=== PATIENT | male | born 1935 | race Caucasian/White ===

== ENCOUNTER 2021-06-08 14:50 | Inpatient (IN) ==
[2021-06-08] MEDS ORDERED: 0.9 % SODIUM CHLORIDE 1,000 ML IV ONE (16:43)
[2021-06-08] MEDS ORDERED: LACTATED RINGERS 1,000 ML IV ONE (16:56)
--- NOTE | 2021-06-08 17:03 | Emergency Department Note ---
HPI General Chief complaint: Urogenital-Male Stated complaint: alt. mental status/UTI Time Seen by Provider: 06/08/21 16:31 Source: patient Mode of arrival: wheelchair Limitations: no limitations History of Present Illness HPI Narrative: Patient is an 86-year-old gentleman arrives emergency department by private vehicle accompanied by his daughter and son-in-law complaining of confusion. History is provided by the patient with significant collateral information provided by his family. The patient was diagnosed with a UTI about 3 weeks ago. He had been having confusion and his primary care doctor prescribed antibiotics to treat this. He initially had some improvement in his confusion but over the past several days has been having worsening confusion. He has been perseverating on unusual tasks, shaving his genitals and armpits and telling his family about this. His family is also noted significant confusion that waxes and wanes throughout the day. He notes that he has been having some dysuria abdominal pain and chest pain. He has been having hematuria with passage of blood clots as well. Nothing seems to make his symptoms any better. Today his confusion was getting worse so his family brought him in for further evaluation. He has received both doses of a COVID-19 vaccine. Related Data Home Medications Medication Instructions Recorded Confirmed amoxicillin-pot clavulanate 5 ml BID 02/06/21 02/06/21 apixaban [Eliquis] 2.5 mg PO BID 02/06/21 02/06/21 rivaroxaban [Xarelto] 15 mg PO HS 02/06/21 02/06/21 Allergies Allergy/AdvReac Type Severity Reaction Status Date / Time No Known Drug Allergies Allergy Verified 06/08/21 14:55 Review of Systems ROS ROS Narrative: Narrative: All systems ED: reviewed and negative except as stated. Constitutional: Denies fever and chills Respiratory: Denies shortness of breath and cough PFSH Narrative Patient History Narrative: Narrative: Medical/Surgical/Family History All Active Problems (Updated 06/08/21 @ 17:05 by Ilya Heller DO) Delirium (Acute) Transient confusion (Acute) Alcohol intoxication (Acute) ISABELLE (acute kidney injury) (Acute) Medical History (Updated 06/08/21 @ 17:05 by Ilya Heller DO) Atrial fibrillation CAD (coronary artery disease) Chronic kidney disease Liver disease Pacemaker Surgical History (Updated 06/08/21 @ 17:03 by Ilya Heller DO) Hx of CABG Social History Smoking Status: Former smoker Alcohol Intake Frequency: 0-2 drinks per day Substance Use: does not use Exam Narrative Narrative: I reviewed the vital signs. Gen -patient is awake and alert and in no acute distress. The patient is well groomed. HEENT -head is atraumatic. There is no conjunctival pallor or scleral icterus. Mucous membranes are moist. There are multiple telangiectasias on the patient's face. CV -S1-S2 regular rate and rhythm. Resp -breathing is nonlabored. Lungs are clear to auscultation bilaterally. There is no cyanosis. Derm -skin is warm and dry. MSK -present extremities are atraumatic. Psych -patient has appropriate affect. Neuro -patient provides somewhat inconsistent but contextually appropriate answers to questions. He is oriented to person place and situation. He is dis oriented to the year and date saying it March 08, 1923. There is no dysarthria or aphasia. There is no facial muscular asymmetry. Extraocular motion is intact. Tongue protrudes in the midline. Palate elevates symmetrically. Shoulder shrug is symmetric. Muscle strength is 5 out of 5 in all 4 extremities. Peripheral sensation is grossly intact to light touch bilaterally. There is no [id number] abnormality. There is no [id number] abnormality. There is no asterixis. NIH stroke scale = 2. General Limitations: no limitations Course Vital Signs Vital signs: Vital Signs Temperature 96.7 F L 06/08/21 14:51 Pulse Rate 107 H 06/08/21 14:51 Respiratory Rate 18 06/08/21 14:51 Blood Pressure 150/84 06/08/21 14:51 Pulse Oximetry (%) 95 06/08/21 14:51 Temperature 96.7 F L 06/08/21 14:51 Pulse Rate 107 H 06/08/21 14:51 Respiratory Rate 18 06/08/21 14:51 Blood Pressure 150/84 06/08/21 14:51 Pulse Oximetry (%) 95 06/08/21 14:51 [facility] MDM Narrative Medical decision making narrative: Patient presents with waxing waning confusion consistent with delirium. As he is on an anticoagulant will obtain a CT scan to evaluate for subdural hematoma. I personally performed a limited bedside transabdominal pelvic ultrasound. The bladder is distended with some echogenic material visible consistent with possible clots. We will insert a Barclay catheter and initiate bladder irrigation of the patient does have significant hematuria. I discussed the plan for metabolic evaluation and imaging with the patient and his family and they are agreeable. Dr. Alonso assumed care at the change of shift and will follow up on the test results and ensure appropriate disposition. Lab Data Result diagrams: 06/08/21 16:44 06/08/21 16:44 Discharge Plan Patient/Caregiver Discharge Instructions Pt seen by MACHINE FINISHER/PA only: No Clinical Impression: Delirium Patient Disposition: Still a Patient Follow up with: Tom Lyle DO [Primary Care Provider] - Prescriptions: No Action amoxicillin-pot clavulanate 400-57 mg/5 mL suspension for reconstitution 5 ml BID RF: 0 Xarelto 15 mg tablet 15 mg PO HS RF: 0 Eliquis 2.5 mg tablet 2.5 mg PO BID RF: 0
[2021-06-08 17:25] LABS: POC INR 1.4 (0.8-1.2); POC Pro Time 16.8 sec (11.9-14.5)
--- NOTE | 2021-06-08 17:51 | Cat Scan Report ---
History: Recent falls, increasing confusion, evaluate for subdural hematoma. FINDINGS: The brain was imaged without contrast in axial plane at 2.5 mm intervals. Sagittal and coronal reformats were created. The radiation exposure was limited using dose reduction technology. FINDINGS: There is moderate generalized atrophy both above and below the tentorium. No subdural or other abnormal extra-axial fluid collection are present. The ventricles are normal in size. 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 No other infarct is detected. There is no hemorrhage, edema or mass effect. Bone windows show no skull fracture. Comparison with the prior CT done on 02/06/21 shows no change. IMPRESSION: No acute head injury or intracranial hemorrhage. Stable atrophy and stable small left basal ganglia lacunar infarct Dr. Alonso was called with the report Interpreted and Authenticated by: Charan Levin 06/08/21
[2021-06-08 17:52] LABS: Basophils # (Auto) 0.03 K/mcL (0.00-0.30); Basophils % (Auto) 0.6 % (0.0-2.0); Eosinophils # (Auto) 0.11 K/mcL (0.00-0.70); Eosinophils % (Auto) 2.3 % (0.0-7.0); Hematocrit 33.9 % (40.1-51.0); Hemoglobin 9.6 g/dL (13.7-17.5); Lymphocytes # (Auto) 0.44 K/mcL (1.50-4.80); Lymphocytes % (Auto) 9.1 % (15.5-49.0); Mean Corpuscular HGB Conc 28.3 g/dL (31.0-36.0); Mean Platelet Volume 10.5 fL (7.4-10.4); Monocytes # (Auto) 0.75 K/mcL (0.10-0.90); Monocytes % (Auto) 15.4 % (1.0-12.0); Neutrophils % (Auto) 72.6 % (38.0-78.0); Platelet Count 145 K/mcL (140-440); RBC 3.39 M/mcL (4.63-6.08); Red Cell Distribution Width 17.2 % (11.5-14.5); WBC 4.9 K/mcL (4.5-11.0)
[2021-06-08] MEDS ORDERED: AZITHROMYCIN 500 MG in DEXTROSE 5% IN WATER 250 ML IV ONE (17:52)
[2021-06-08] MEDS ORDERED: cefTRIAXone 2 GM in DEXTROSE 5% IN WATER 50 ML IV ONE (17:52)
--- NOTE | 2021-06-08 17:55 | XRay Report ---
HISTORY: Pneumonia, altered mental status FINDINGS: There are widespread alveolar opacities in both lungs affecting the left side greater than right. This could be a combination of pulmonary edema and severe pneumonia. There are superimposed pleural effusions, small to moderate on the left and small on the right. The heart is moderately enlarged. There is a pacemaker. Comparison with the prior chest CT done on 02/15/21 shows the patient has underlying emphysema. Bilateral pleural effusions were present at the time of the prior exam. The infiltrates have become worse and the heart is larger. IMPRESSION: Pneumonia or pulmonary edema superimposed underlying emphysema Interpreted and Authenticated by: Charan Levin 06/08/21
[2021-06-08 18:14] LABS: ALT/SGPT 17 U/L (<40); AST/SGOT 29 U/L (<40); Albumin 3.7 gm/dL (3.2-5.2); Albumin/Globulin Ratio 1.2 (1.0-2.3); Alkaline Phosphatase 130 U/L (39-117); Bilirubin,Total 0.7 mg/dL (0.1-1.0); Blood Urea Nitrogen 30 mg/dL (8-23); Carbon Dioxide 23 mmol/L (22-30); Chloride 104 mmol/L (96-108); Globulin 3.2 gm/dL (2.2-3.7); Glomerular Filtration Rate 49; Glucose 78 mg/dL (70-105)
[2021-06-08 18:23] LABS: Alcohol, Blood < 10.0 mg/dL; Alcohol,Blood < 0.010 gm/dL (<0.010)
[2021-06-08] MEDS ORDERED: cefTRIAXone 2 GM VIAL ONE (18:39)
[2021-06-08 19:07] LABS: Appearance,Urine HAZY (Clear); Bilirubin,Urine Negative (Negative); Color,Urine YELLOW; Culture Indicated,Urine yes; Glucose,Urine (UA) Negative (Negative); Ketones,Urine Negative (Negative); Leukocyte Esterase,Urine 25 /uL (Negative); Mucus,Urine FEW /hpf; Nitrate,Urine Negative (Negative); Protein,Urine 100 mg/dL (Negative); Specific Gravity,Urine 1.019 (1.000-1.035); Urine Blood >=1.0 mg/dL (Negative); Urine Hyaline Cast 3 /lph (0-2); Urine RBC 8 /hpf (0-3); Urine Squamous Epithelial Cell 0 /hpf (0-4); Urine WBC 12 /hpf (0-4); Urobilinogen,Urine Negative
--- NOTE | 2021-06-08 19:31 | Emergency Department Note ---
HPI General Chief complaint: Urogenital-Male Stated complaint: alt. mental status/UTI Time Seen by Provider: 06/08/21 16:31 Source: patient Mode of arrival: wheelchair Limitations: no limitations History of Present Illness HPI Narrative: Narrative: This patient was signed out to me by Dr Heller, for full details please see his H&P. In brief, he presents today for ALOC, w/ some hematuria in setting of recent UTI Tx and w/ a PMH of CAD, AF, and previous issues w/ ETOH. He was signed out to me with imaging and labs pending. I evaluated the pt personally and he reported no complaints. Related Data Home Medications Medication Instructions Recorded Confirmed apixaban [Eliquis] 2.5 mg PO BID 02/06/21 06/09/21 albuterol sulfate [ProAir HFA] 1 - 2 puff INHALATION Q4HP PRN 06/09/21 06/09/21 Allergies Allergy/AdvReac Type Severity Reaction Status Date / Time No Known Drug Allergies Allergy Verified 06/08/21 14:55 Review of Systems ROS ROS Narrative: Narrative: PFSH Narrative Patient History Narrative: Narrative: Medical/Surgical/Family History All Active Problems (Updated 06/08/21 @ 20:16 by Randy Alonso MD) Delirium (Acute) Pneumonia (Acute) Transient confusion (Acute) Alcohol intoxication (Acute) ISABELLE (acute kidney injury) (Acute) Medical History (Updated 06/08/21 @ 20:16 by Randy Alonso MD) Atrial fibrillation CAD (coronary artery disease) Chronic kidney disease Liver disease Pacemaker Surgical History (Updated 06/08/21 @ 17:03 by Ilya Heller DO) Hx of CABG Social History Smoking Status: Former smoker Alcohol Intake Frequency: 0-2 drinks per day Substance Use: does not use Exam Narrative Narrative: Narrative: General Limitations: no limitations General appearance: Present alert and in no apparent distress Head Head: Present atraumatic and normocephalic Respiratory Respiratory: Present normal lung sounds bilaterally; Absent respiratory distress, rales/crackles, wheezes and stridor Cardiovascular Cardiovascular: Present regular rate, normal rhythm, +S1, +S2 and other (2+ B/L radial pulses); Absent systolic murmur and diastolic murmur Neurological Neurological: Present alert and other (confused. Intact sensation and strength over all 4 extremities) Course Vital Signs Vital signs: Vital Signs Temperature 96.7 F L 06/08/21 14:51 Pulse Rate 107 H 06/08/21 14:51 Respiratory Rate 18 06/08/21 14:51 Blood Pressure 150/84 06/08/21 14:51 Pulse Oximetry (%) 95 06/08/21 14:51 Temperature 97.3 F 06/09/21 14:40 Pulse Rate 62 06/09/21 14:40 Respiratory Rate 18 06/09/21 14:40 Blood Pressure 111/63 06/09/21 14:40 Pulse Oximetry (%) 91 06/09/21 14:40 MDM MDM Narrative Medical decision making narrative: Narrative: 86 yo M w/ h/o CAD, AF, previous ETOH use p/w ALOC. DDx - sepsis, intracranial bleed, CVA, metabolic/electrolyte d/o, toxin ingestion, endocrine d/o Pt was initially evaluated by Dr Heller who started a thorough W/U and empiric fluids. Given the concern of hematuria, he requested a three way cather placement to evaluate this further and to allow for possible bladder irrigation if needed. The pts CT head showed no intracranial bleed, and his neuro exam documented by Dr Heller was nonfocal. I did not feel that CVA or ICH was likely. CMP showed no serious abnormalities - ammonia was WNL, Cr was at blaseline. Clinically a toxin ingestion seemed unlikely. His presentation was not c/w hyperthyroidism or other endocrine d/o. He did not meet SIRS criteria. His UA did not show convincing evidence of UTI w/ no bacteria present although his PNA coverage would also cover for UTI. Overall his evaluation was c/w ALOC likely 2/2 PNA. I started him on rocephin and azithromycin. Admission was clearly required. However, the hospitalist stated that his service was full and he would be unable to take the pt. He did state that two pts would likely go home early afternoon and he might be able to take pt at that point. I have discussed the option of overnight Tx in the ED w/ plan for likely admission tomorrow afternoon, vs T/F for hospitalization. At this point, pt does not require specialist care and the risks of flying far afield seem to outweigh the benefits, given that all that is required for his Tx is IVF and IV abx. I have reviewed w/ the family, and the gas charger, and we are in agreement w/ keeping the pt in the ED for further Tx and likely admission tomorrow. Although potentially if his mental status and BUN improve, he would have a CURB65 score of 1 and would potentially be able to be DCd home. Family was also comfortable w/ this. I monitored the pt overnight. He remained stable, no other overnight interventions were required, and he was signed out to Dr Heller. Lab Data Lab results reviewed: Yes I reviewed the patient's lab results. Result diagrams: 06/08/21 16:44 06/08/21 16:44 Labs: Lab Results 06/08/21 06/08/21 06/08/21 Range/Units 16:44 16:44 16:44 WBC 4.9 (4.5-11.0) K/mcL RBC 3.39 L (4.63-6.08) M/mcL Hgb 9.6 L (13.7-17.5) g/dL Hct 33.9 L (40.1-51.0) % POC Hct (41-55) % MCV 100.0 (80.0-100.0) fL MCH 28.3 (26.0-34.0) pg MCHC 28.3 L (31.0-36.0) g/dL RDW 17.2 H (11.5-14.5) % Plt Count 145 (140-440) K/mcL MPV 10.5 H (7.4-10.4) fL Neut % (Auto) 72.6 (38.0-78.0) % Lymph % (Auto) 9.1 L (15.5-49.0) % [place] % (Auto) 15.4 H (1.0-12.0) % Eos % (Auto) 2.3 (0.0-7.0) % Baso % (Auto) 0.6 (0.0-2.0) % Lymph # (Auto) 0.44 L (1.50-4.80) K/mcL [place] # (Auto) 0.75 (0.10-0.90) K/mcL Eos # (Auto) 0.11 (0.00-0.70) K/mcL Baso # (Auto) 0.03 (0.00-0.30) K/mcL Absolute Neutrophils 3.53 (1.80-8.00) K/mcL POC PT (11.9-14.5) sec POC INR (0.8-1.2) POC Sodium (133-145) mEq/L Sodium 140 (133-145) mmol/L POC Potassium (3.3-5.1) mEql/L Potassium 4.3 (3.3-5.1) mmol/L POC Chloride (96-108) mEq/L Chloride 104 (96-108) mmol/L Carbon Dioxide 23 (22-30) mmol/L POC Total CO2 (22-30) mmol/L Anion Gap 13.0 (8.0-16.0) POC BUN (6-20) mg/dL BUN 30 H (8-23) mg/dL Creatinine 1.3 H (0.7-1.2) mg/dL POC Creatinine (0.6-1.2) mg/dL GFR Calculation 49 Glucose 78 (70-105) mg/dL POC Glucose (70-105) mg/dL Calcium 9.0 (8.6-10.4) mg/dL POC WB Ioniz Calcium (1.16-1.32) mmEq/L Total Bilirubin 0.7 (0.1-1.0) mg/dL AST 29 (<40) U/L ALT 17 (<40) U/L Alkaline Phosphatase 130 H (39-117) U/L Ammonia 18 (16-60) umol/L NT-Pro-B Natriuret Pep (<450.0) pg/mL Total Protein 6.9 (5.9-8.4) gm/dL Albumin 3.7 (3.2-5.2) gm/dL Globulin 3.2 (2.2-3.7) gm/dL Albumin/Globulin Ratio 1.2 (1.0-2.3) Procalcitonin (<0.10) ng/mL Urine Color Urine Appearance (Clear) Urine pH (5.0-9.0) Ur Specific [place] (1.000-1.035) Urine Protein (Negative) mg/dL Urine Glucose (UA) (Negative) mg/dL Urine Ketones (Negative) mg/dL Urine Occult Blood (Negative) mg/dL Urine Nitrate (Negative) Urine Bilirubin (Negative) mg/dL Urine Urobilinogen mg/dL Ur Leukocyte Esterase (Negative) /uL Urine RBC (0-3) /hpf Urine WBC (0-4) /hpf Ur Squamous Epith Cells (0-4) /hpf Urine Bacteria (0) /hpf Hyaline Casts (0-2) /lph Urine Mucus (None) /hpf Ur Culture Indicated? Ethyl Alcohol (<0.010) gm/dL 06/08/21 06/08/21 06/08/21 Range/Units 16:44 17:06 18:26 WBC (4.5-11.0) K/mcL RBC (4.63-6.08) M/mcL Hgb (13.7-17.5) g/dL Hct (40.1-51.0) % POC Hct (41-55) % MCV (80.0-100.0) fL MCH (26.0-34.0) pg MCHC (31.0-36.0) g/dL RDW (11.5-14.5) % Plt Count (140-440) K/mcL MPV (7.4-10.4) fL Neut % (Auto) (38.0-78.0) % Lymph % (Auto) (15.5-49.0) % [place] % (Auto) (1.0-12.0) % Eos % (Auto) (0.0-7.0) % Baso % (Auto) (0.0-2.0) % Lymph # (Auto) (1.50-4.80) K/mcL [place] # (Auto) (0.10-0.90) K/mcL Eos # (Auto) (0.00-0.70) K/mcL Baso # (Auto) (0.00-0.30) K/mcL Absolute Neutrophils (1.80-8.00) K/mcL POC PT 16.8 H (11.9-14.5) sec POC INR 1.4 H (0.8-1.2) POC Sodium (133-145) mEq/L Sodium (133-145) mmol/L POC Potassium (3.3-5.1) mEql/L Potassium (3.3-5.1) mmol/L POC Chloride (96-108) mEq/L Chloride (96-108) mmol/L Carbon Dioxide (22-30) mmol/L POC Total CO2 (22-30) mmol/L Anion Gap (8.0-16.0) POC BUN (6-20) mg/dL BUN (8-23) mg/dL Creatinine (0.7-1.2) mg/dL POC Creatinine (0.6-1.2) mg/dL GFR Calculation Glucose (70-105) mg/dL POC Glucose (70-105) mg/dL Calcium (8.6-10.4) mg/dL POC WB Ioniz Calcium (1.16-1.32) mmEq/L Total Bilirubin (0.1-1.0) mg/dL AST (<40) U/L ALT (<40) U/L Alkaline Phosphatase (39-117) U/L Ammonia (16-60) umol/L NT-Pro-B Natriuret Pep (<450.0) pg/mL Total Protein (5.9-8.4) gm/dL Albumin (3.2-5.2) gm/dL Globulin (2.2-3.7) gm/dL Albumin/Globulin Ratio (1.0-2.3) Procalcitonin (<0.10) ng/mL Urine Color Yellow Urine Appearance Hazy A (Clear) Urine pH 5.0 (5.0-9.0) Ur Specific [place] 1.019 (1.000-1.035) Urine Protein 100 A (Negative) mg/dL Urine Glucose (UA) Negative (Negative) mg/dL Urine Ketones Negative (Negative) mg/dL Urine Occult Blood >=1.0 A (Negative) mg/dL Urine Nitrate Negative (Negative) Urine Bilirubin Negative (Negative) mg/dL Urine Urobilinogen Negative mg/dL Ur Leukocyte Esterase 25 A (Negative) /uL Urine RBC 8 H (0-3) /hpf Urine WBC 12 H (0-4) /hpf Ur Squamous Epith Cells 0 (0-4) /hpf Urine Bacteria None (0) /hpf Hyaline Casts 3 H (0-2) /lph Urine Mucus Few A (None) /hpf Ur Culture Indicated? yes Ethyl Alcohol < 0.010 (<0.010) gm/dL 06/09/21 06/09/21 06/09/21 Range/Units 08:39 08:39 08:39 WBC (4.5-11.0) K/mcL RBC (4.63-6.08) M/mcL Hgb (13.7-17.5) g/dL Hct (40.1-51.0) % POC Hct 31 L (41-55) % MCV (80.0-100.0) fL MCH (26.0-34.0) pg MCHC (31.0-36.0) g/dL RDW (11.5-14.5) % Plt Count (140-440) K/mcL MPV (7.4-10.4) fL Neut % (Auto) (38.0-78.0) % Lymph % (Auto) (15.5-49.0) % [place] % (Auto) (1.0-12.0) % Eos % (Auto) (0.0-7.0) % Baso % (Auto) (0.0-2.0) % Lymph # (Auto) (1.50-4.80) K/mcL [place] # (Auto) (0.10-0.90) K/mcL Eos # (Auto) (0.00-0.70) K/mcL Baso # (Auto) (0.00-0.30) K/mcL Absolute Neutrophils (1.80-8.00) K/mcL POC PT (11.9-14.5) sec POC INR (0.8-1.2) POC Sodium 140 (133-145) mEq/L Sodium (133-145) mmol/L POC Potassium 4.6 (3.3-5.1) mEql/L Potassium (3.3-5.1) mmol/L POC Chloride 102 (96-108) mEq/L Chloride (96-108) mmol/L Carbon Dioxide (22-30) mmol/L POC Total CO2 23 (22-30) mmol/L Anion Gap (8.0-16.0) POC BUN 32 H (6-20) mg/dL BUN (8-23) mg/dL Creatinine (0.7-1.2) mg/dL POC Creatinine 1.4 H (0.6-1.2) mg/dL GFR Calculation Glucose (70-105) mg/dL POC Glucose 91 (70-105) mg/dL Calcium (8.6-10.4) mg/dL POC WB Ioniz Calcium 1.18 (1.16-1.32) mmEq/L Total Bilirubin (0.1-1.0) mg/dL AST (<40) U/L ALT (<40) U/L Alkaline Phosphatase (39-117) U/L Ammonia (16-60) umol/L NT-Pro-B Natriuret Pep 5396.0 H (<450.0) pg/mL Total Protein (5.9-8.4) gm/dL Albumin (3.2-5.2) gm/dL Globulin (2.2-3.7) gm/dL Albumin/Globulin Ratio (1.0-2.3) Procalcitonin 0.13 H (<0.10) ng/mL Urine Color Urine Appearance (Clear) Urine pH (5.0-9.0) Ur Specific [place] (1.000-1.035) Urine Protein (Negative) mg/dL Urine Glucose (UA) (Negative) mg/dL Urine Ketones (Negative) mg/dL Urine Occult Blood (Negative) mg/dL Urine Nitrate (Negative) Urine Bilirubin (Negative) mg/dL Urine Urobilinogen mg/dL Ur Leukocyte Esterase (Negative) /uL Urine RBC (0-3) /hpf Urine WBC (0-4) /hpf Ur Squamous Epith Cells (0-4) /hpf Urine Bacteria (0) /hpf Hyaline Casts (0-2) /lph Urine Mucus (None) /hpf Ur Culture Indicated? Ethyl Alcohol (<0.010) gm/dL ED POC Tests ED POC Tests: MATT - SARS Antigen Negative Discharge Plan Patient/Caregiver Discharge Instructions Pt seen by SENIOR CLINICAL CONSULTANT/PA only: No Clinical Impression: Delirium, Pneumonia Patient Disposition: Xfer As Inpt ([facility]) Condition: Fair Discharge Date/Time: 06/09/21 14:42
[2021-06-08] MEDS ORDERED: LORazepam 1 MG TABLET PO ONE ×2 (20:44→21:51)
--- NOTE | 2021-06-09 08:24 | Emergency Department Note ---
Course Vital Signs Vital signs: Vital Signs Temperature 96.7 F L 06/08/21 14:51 Pulse Rate 107 H 06/08/21 14:51 Respiratory Rate 18 06/08/21 14:51 Blood Pressure 150/84 06/08/21 14:51 Pulse Oximetry (%) 95 06/08/21 14:51 Temperature 96.7 F L 06/08/21 14:51 Pulse Rate 69 06/09/21 11:45 Respiratory Rate 19 06/09/21 11:32 Blood Pressure 112/67 06/09/21 11:17 Pulse Oximetry (%) 98 06/09/21 11:45 MDM MDM Narrative Medical decision making narrative: I assumed care from Dr. Alonso at the change of shift. At 8:24 AM, the patient is resting comfortably with family at bedside. I discussed the plan for hopeful admission to our hospital if a bed becomes available and transfer if no bed is available in a reasonable amount of time. The family is agreeable with this. I discussed the patient's history examination and diagnostic findings with Dr. Mcginnis, who agrees with the plan of care and accepts admission. Lab Data Lab results reviewed: Yes I reviewed the patient's lab results. Result diagrams: 06/08/21 16:44 06/08/21 16:44 Labs: Lab Results 06/08/21 06/08/21 06/08/21 Range/Units 16:44 16:44 16:44 WBC 4.9 (4.5-11.0) K/mcL RBC 3.39 L (4.63-6.08) M/mcL Hgb 9.6 L (13.7-17.5) g/dL Hct 33.9 L (40.1-51.0) % POC Hct (41-55) % MCV 100.0 (80.0-100.0) fL MCH 28.3 (26.0-34.0) pg MCHC 28.3 L (31.0-36.0) g/dL RDW 17.2 H (11.5-14.5) % Plt Count 145 (140-440) K/mcL MPV 10.5 H (7.4-10.4) fL Neut % (Auto) 72.6 (38.0-78.0) % Lymph % (Auto) 9.1 L (15.5-49.0) % Anderson % (Auto) 15.4 H (1.0-12.0) % Eos % (Auto) 2.3 (0.0-7.0) % Baso % (Auto) 0.6 (0.0-2.0) % Lymph # (Auto) 0.44 L (1.50-4.80) K/mcL Anderson # (Auto) 0.75 (0.10-0.90) K/mcL Eos # (Auto) 0.11 (0.00-0.70) K/mcL Baso # (Auto) 0.03 (0.00-0.30) K/mcL Absolute Neutrophils 3.53 (1.80-8.00) K/mcL POC PT (11.9-14.5) sec POC INR (0.8-1.2) POC Sodium (133-145) mEq/L Sodium 140 (133-145) mmol/L POC Potassium (3.3-5.1) mEql/L Potassium 4.3 (3.3-5.1) mmol/L POC Chloride (96-108) mEq/L Chloride 104 (96-108) mmol/L Carbon Dioxide 23 (22-30) mmol/L POC Total CO2 (22-30) mmol/L Anion Gap 13.0 (8.0-16.0) POC BUN (6-20) mg/dL BUN 30 H (8-23) mg/dL Creatinine 1.3 H (0.7-1.2) mg/dL POC Creatinine (0.6-1.2) mg/dL GFR Calculation 49 Glucose 78 (70-105) mg/dL POC Glucose (70-105) mg/dL Calcium 9.0 (8.6-10.4) mg/dL POC WB Ioniz Calcium (1.16-1.32) mmEq/L Total Bilirubin 0.7 (0.1-1.0) mg/dL AST 29 (<40) U/L ALT 17 (<40) U/L Alkaline Phosphatase 130 H (39-117) U/L Ammonia 18 (16-60) umol/L Total Protein 6.9 (5.9-8.4) gm/dL Albumin 3.7 (3.2-5.2) gm/dL Globulin 3.2 (2.2-3.7) gm/dL Albumin/Globulin Ratio 1.2 (1.0-2.3) Urine Color Urine Appearance (Clear) Urine pH (5.0-9.0) Ur Specific Coward (1.000-1.035) Urine Protein (Negative) mg/dL Urine Glucose (UA) (Negative) mg/dL Urine Ketones (Negative) mg/dL Urine Occult Blood (Negative) mg/dL Urine Nitrate (Negative) Urine Bilirubin (Negative) mg/dL Urine Urobilinogen mg/dL Ur Leukocyte Esterase (Negative) /uL Urine RBC (0-3) /hpf Urine WBC (0-4) /hpf Ur Squamous Epith Cells (0-4) /hpf Urine Bacteria (0) /hpf Hyaline Casts (0-2) /lph Urine Mucus (None) /hpf Ur Culture Indicated? Ethyl Alcohol (<0.010) gm/dL 06/08/21 06/08/21 06/08/21 Range/Units 16:44 17:06 18:26 WBC (4.5-11.0) K/mcL RBC (4.63-6.08) M/mcL Hgb (13.7-17.5) g/dL Hct (40.1-51.0) % POC Hct (41-55) % MCV (80.0-100.0) fL MCH (26.0-34.0) pg MCHC (31.0-36.0) g/dL RDW (11.5-14.5) % Plt Count (140-440) K/mcL MPV (7.4-10.4) fL Neut % (Auto) (38.0-78.0) % Lymph % (Auto) (15.5-49.0) % Anderson % (Auto) (1.0-12.0) % Eos % (Auto) (0.0-7.0) % Baso % (Auto) (0.0-2.0) % Lymph # (Auto) (1.50-4.80) K/mcL Anderson # (Auto) (0.10-0.90) K/mcL Eos # (Auto) (0.00-0.70) K/mcL Baso # (Auto) (0.00-0.30) K/mcL Absolute Neutrophils (1.80-8.00) K/mcL POC PT 16.8 H (11.9-14.5) sec POC INR 1.4 H (0.8-1.2) POC Sodium (133-145) mEq/L Sodium (133-145) mmol/L POC Potassium (3.3-5.1) mEql/L Potassium (3.3-5.1) mmol/L POC Chloride (96-108) mEq/L Chloride (96-108) mmol/L Carbon Dioxide (22-30) mmol/L POC Total CO2 (22-30) mmol/L Anion Gap (8.0-16.0) POC BUN (6-20) mg/dL BUN (8-23) mg/dL Creatinine (0.7-1.2) mg/dL POC Creatinine (0.6-1.2) mg/dL GFR Calculation Glucose (70-105) mg/dL POC Glucose (70-105) mg/dL Calcium (8.6-10.4) mg/dL POC WB Ioniz Calcium (1.16-1.32) mmEq/L Total Bilirubin (0.1-1.0) mg/dL AST (<40) U/L ALT (<40) U/L Alkaline Phosphatase (39-117) U/L Ammonia (16-60) umol/L Total Protein (5.9-8.4) gm/dL Albumin (3.2-5.2) gm/dL Globulin (2.2-3.7) gm/dL Albumin/Globulin Ratio (1.0-2.3) Urine Color Yellow Urine Appearance Hazy A (Clear) Urine pH 5.0 (5.0-9.0) Ur Specific Coward 1.019 (1.000-1.035) Urine Protein 100 A (Negative) mg/dL Urine Glucose (UA) Negative (Negative) mg/dL Urine Ketones Negative (Negative) mg/dL Urine Occult Blood >=1.0 A (Negative) mg/dL Urine Nitrate Negative (Negative) Urine Bilirubin Negative (Negative) mg/dL Urine Urobilinogen Negative mg/dL Ur Leukocyte Esterase 25 A (Negative) /uL Urine RBC 8 H (0-3) /hpf Urine WBC 12 H (0-4) /hpf Ur Squamous Epith Cells 0 (0-4) /hpf Urine Bacteria None (0) /hpf Hyaline Casts 3 H (0-2) /lph Urine Mucus Few A (None) /hpf Ur Culture Indicated? yes Ethyl Alcohol < 0.010 (<0.010) gm/dL 06/09/21 Range/Units 08:39 WBC (4.5-11.0) K/mcL RBC (4.63-6.08) M/mcL Hgb (13.7-17.5) g/dL Hct (40.1-51.0) % POC Hct 31 L (41-55) % MCV (80.0-100.0) fL MCH (26.0-34.0) pg MCHC (31.0-36.0) g/dL RDW (11.5-14.5) % Plt Count (140-440) K/mcL MPV (7.4-10.4) fL Neut % (Auto) (38.0-78.0) % Lymph % (Auto) (15.5-49.0) % Anderson % (Auto) (1.0-12.0) % Eos % (Auto) (0.0-7.0) % Baso % (Auto) (0.0-2.0) % Lymph # (Auto) (1.50-4.80) K/mcL Anderson # (Auto) (0.10-0.90) K/mcL Eos # (Auto) (0.00-0.70) K/mcL Baso # (Auto) (0.00-0.30) K/mcL Absolute Neutrophils (1.80-8.00) K/mcL POC PT (11.9-14.5) sec POC INR (0.8-1.2) POC Sodium 140 (133-145) mEq/L Sodium (133-145) mmol/L POC Potassium 4.6 (3.3-5.1) mEql/L Potassium (3.3-5.1) mmol/L POC Chloride 102 (96-108) mEq/L Chloride (96-108) mmol/L Carbon Dioxide (22-30) mmol/L POC Total CO2 23 (22-30) mmol/L Anion Gap (8.0-16.0) POC BUN 32 H (6-20) mg/dL BUN (8-23) mg/dL Creatinine (0.7-1.2) mg/dL POC Creatinine 1.4 H (0.6-1.2) mg/dL GFR Calculation Glucose (70-105) mg/dL POC Glucose 91 (70-105) mg/dL Calcium (8.6-10.4) mg/dL POC WB Ioniz Calcium 1.18 (1.16-1.32) mmEq/L Total Bilirubin (0.1-1.0) mg/dL AST (<40) U/L ALT (<40) U/L Alkaline Phosphatase (39-117) U/L Ammonia (16-60) umol/L Total Protein (5.9-8.4) gm/dL Albumin (3.2-5.2) gm/dL Globulin (2.2-3.7) gm/dL Albumin/Globulin Ratio (1.0-2.3) Urine Color Urine Appearance (Clear) Urine pH (5.0-9.0) Ur Specific Coward (1.000-1.035) Urine Protein (Negative) mg/dL Urine Glucose (UA) (Negative) mg/dL Urine Ketones (Negative) mg/dL Urine Occult Blood (Negative) mg/dL Urine Nitrate (Negative) Urine Bilirubin (Negative) mg/dL Urine Urobilinogen mg/dL Ur Leukocyte Esterase (Negative) /uL Urine RBC (0-3) /hpf Urine WBC (0-4) /hpf Ur Squamous Epith Cells (0-4) /hpf Urine Bacteria (0) /hpf Hyaline Casts (0-2) /lph Urine Mucus (None) /hpf Ur Culture Indicated? Ethyl Alcohol (<0.010) gm/dL ED POC Tests ED POC Tests: MATT - SARS Antigen Negative Discharge Plan Patient/Caregiver Discharge Instructions Pt seen by CLINICAL AIDE/PA only: No Clinical Impression: Delirium, Pneumonia Patient Disposition: Xfer As Inpt ([facility]) Condition: Fair Follow up with: Tom Lyle DO [Primary Care Provider] - Prescriptions: No Action Eliquis 2.5 mg tablet 2.5 mg PO BID RF: 0 albuterol sulfate [ProAir HFA] 90 mcg/actuation HFA aerosol inhaler 1 - 2 puff INHALATION Q4HP PRN (Reason: Shortness Of Breath) RF: 0
[2021-06-09] MEDS ORDERED: cefTRIAXone 1 GM VIAL IV SCH (08:30)
[2021-06-09 08:54] LABS: POC Blood Urea Nitrogen 32 mg/dL (6-20); POC CO2 23 mmol/L (22-30); POC Calcium, Ionized 1.18 mmEq/L (1.16-1.32); POC Chloride 102 mEq/L (96-108); POC Creatinine 1.4 mg/dL (0.6-1.2); POC Glucose, Random 91 mg/dL (70-105); POC Hematocrit 31 % (41-55); POC Potassium 4.6 mEql/L (3.3-5.1); POC Sodium 140 mEq/L (133-145)
[2021-06-09] MEDS ORDERED: AZITHROMYCIN 250 MG TABLET PO SCH (09:00)
[2021-06-09] MEDS ORDERED: HYDROCHLOROTHIAZIDE 25 MG TABLET PO SCH (09:00)
[2021-06-09] MEDS ORDERED: RIVAROXABAN 20 MG TABLET PO SCH (09:00)
[2021-06-09] MEDS ORDERED: SPIRONOLACTONE 25 MG TABLET PO SCH (09:00)
[2021-06-09] MEDS ORDERED: FUROSEMIDE 20 MG TABLET PO SCH (09:00)
[2021-06-09] MEDS ORDERED: APIXABAN 5 MG TABLET PO SCH (09:00)
--- NOTE | 2021-06-09 10:35 | EKG ---
[facility] Test Date: 2021-06-08 Pat Name: Wilton Lobato Department: ED Room: Gender: Male Hospital Technician: adeline : 1935 Requested By: Ilya Heller Order Number: [id number] Reading MD: Emmanuel Francis Measurements Intervals [place] Rate: 74 P: NE: 60 QRS: 211 QRSD: 144 T: -25 QT: 450 QTc: 500 Interpretive Statements A-V dual-paced complexes w/ some inhibition No further analysis attempted due to paced rhythm Electronically Signed On 06-09-2021 10:35:14 PDT by Emmanuel Francis /store/M0/[id number]/[id number].pdf
[2021-06-09] MEDS: ALBUTEROL SULFATE 2.5 MG/3 ML NEBULIZER NEB SCH ×2 (11:32→17:18)
--- NOTE | 2021-06-09 14:05 | Internal Med History&Physical ---
HPI History of Present Illness Patient information: Note initiated : 06/09/21 at 1:46 pm Service Date, if different from initiated Date: [] Patient: Wilton Lobato a 86 y/o M admitted on for alt. mental status/UTI. Chief Complaint: [] History of present illness: Mr. Lobato is a 86 year old male with a history of CAD s/ CABG in 2002, atrial fibrillation on Eliquis COPD, recent UTI treated with Ciprofloxacin presented to the ED with confusion for several days. The patient has been declining at home for several weeks now according to family. Recently the patient has also had hematuria. In the ED the patient required about 3 L/min nasal canula oxygen. He was mildly hypothermic on arrival to the ED, no leukocytosis on CBC, chemistry panel was notable for a creatinine of 1.4. Creatinine was 1.6 in January of 2021. Chest xray showed widespread bilateral alveolar opacities, radiology felt this was probably secondary to pulmonary edema or heart failure. The patient was started on antibiotics for presumed pneumonia in the ED and hospital medicine was asked to admit the patient. Review of systems Constitutional: no fever, positive for fatigue Eyes: no vision changes or pain Cardiovascular: positive for chest pain, no palpitations Respiratory: positive for cough and dyspnea Gastrointestinal: no abdominal pain, no nausea, vomiting, or diarrhea Genitourinary: positive for hematuria Musculoskeletal: no arthralgia or myalgia Integumentary: no skin lesion or wound Neurological: no focal weakness or numbness Psychiatric: no anxiety or depression Physical exam General: Omar ill-appearing 86-year-old male Head: Atraumatic, normal inspection. Eyes: normal appearance, no scleral icterus. Neck: full ROM Respiratory: bilateral crackles. Cardiovascular: sternotomy scar, normal rate and rhythm, S1, S2. GI/Abdominal: soft, nontender, no guarding. Extremities: full range of motion, nontender. Neurological: CN II-XII intact, intact motor, intact sensation. Psychiatric: impaired cognition Skin: laceration on left chin from shaving, multiple bruises, fragile skin PFSH PFSH All Active Problems (Updated 06/08/21 @ 20:16 by Randy Alonso MD) Delirium (Acute) Pneumonia (Acute) Transient confusion (Acute) Alcohol intoxication (Acute) ISABELLE (acute kidney injury) (Acute) Medical History (Updated 06/08/21 @ 20:16 by Randy Alonso MD) Atrial fibrillation CAD (coronary artery disease) Chronic kidney disease Liver disease Pacemaker Surgical History (Updated 06/08/21 @ 17:03 by Ilya Heller DO) Hx of CABG Social History alcohol intake frequency: 0-2 drinks per day substance use type: does not use MEDS/ALLERGIES Home Medications and Allergies Home Medications Medication Instructions Recorded Confirmed Type apixaban [Eliquis] 2.5 mg PO BID 02/06/21 06/09/21 History albuterol sulfate [ProAir HFA] 1 - 2 puff INHALATION Q4HP PRN 06/09/21 06/09/21 History Allergies Allergy/AdvReac Type Severity Reaction Status Date / Time No Known Drug Allergies Allergy Verified 06/08/21 14:55 EXAM Constitutional Vitals: Temp Pulse Resp BP Pulse Ox 96.7 F L 64 19 118/69 98 06/08/21 14:51 06/09/21 13:01 06/09/21 11:32 06/09/21 13:01 06/09/21 13:01 DATA Data Completed and Pending Labs: Labs from last 24 hours 06/09/21 06/09/21 06/09/21 08:39 08:39 08:39 WBC RBC Hgb Hct POC Hct 31 L MCV MCH MCHC RDW Plt Count MPV Neut % (Auto) Lymph % (Auto) Towner % (Auto) Eos % (Auto) Baso % (Auto) Lymph # (Auto) Towner # (Auto) Eos # (Auto) Baso # (Auto) Absolute Neutrophils POC PT POC INR POC Sodium 140 Sodium POC Potassium 4.6 Potassium POC Chloride 102 Chloride Carbon Dioxide POC Total CO2 23 Anion Gap POC BUN 32 H BUN Creatinine POC Creatinine 1.4 H GFR Calculation Glucose POC Glucose 91 Calcium POC WB Ioniz Calcium 1.18 Total Bilirubin AST ALT Alkaline Phosphatase Ammonia NT-Pro-B Natriuret Pep 5396.0 H Total Protein Albumin Globulin Albumin/Globulin Ratio Procalcitonin Pending Urine Color Urine Appearance Urine pH Ur Specific Carpenter Urine Protein Urine Glucose (UA) Urine Ketones Urine Occult Blood Urine Nitrate Urine Bilirubin Urine Urobilinogen Ur Leukocyte Esterase Urine RBC Urine WBC Ur Squamous Epith Cells Urine Bacteria Hyaline Casts Urine Mucus Ur Culture Indicated? Ethyl Alcohol 06/08/21 06/08/21 06/08/21 18:26 17:06 16:44 WBC RBC Hgb Hct POC Hct MCV MCH MCHC RDW Plt Count MPV Neut % (Auto) Lymph % (Auto) Towner % (Auto) Eos % (Auto) Baso % (Auto) Lymph # (Auto) Towner # (Auto) Eos # (Auto) Baso # (Auto) Absolute Neutrophils POC PT 16.8 H POC INR 1.4 H POC Sodium Sodium POC Potassium Potassium POC Chloride Chloride Carbon Dioxide POC Total CO2 Anion Gap POC BUN BUN Creatinine POC Creatinine GFR Calculation Glucose POC Glucose Calcium POC WB Ioniz Calcium Total Bilirubin AST ALT Alkaline Phosphatase Ammonia NT-Pro-B Natriuret Pep Total Protein Albumin Globulin Albumin/Globulin Ratio Procalcitonin Urine Color Yellow Urine Appearance Hazy A Urine pH 5.0 Ur Specific Carpenter 1.019 Urine Protein 100 A Urine Glucose (UA) Negative Urine Ketones Negative Urine Occult Blood >=1.0 A Urine Nitrate Negative Urine Bilirubin Negative Urine Urobilinogen Negative Ur Leukocyte Esterase 25 A Urine RBC 8 H Urine WBC 12 H Ur Squamous Epith Cells 0 Urine Bacteria None Hyaline Casts 3 H Urine Mucus Few A Ur Culture Indicated? yes Ethyl Alcohol < 0.010 06/08/21 06/08/21 06/08/21 16:44 16:44 16:44 WBC 4.9 RBC 3.39 L Hgb 9.6 L Hct 33.9 L POC Hct MCV 100.0 MCH 28.3 MCHC 28.3 L RDW 17.2 H Plt Count 145 MPV 10.5 H Neut % (Auto) 72.6 Lymph % (Auto) 9.1 L Towner % (Auto) 15.4 H Eos % (Auto) 2.3 Baso % (Auto) 0.6 Lymph # (Auto) 0.44 L Towner # (Auto) 0.75 Eos # (Auto) 0.11 Baso # (Auto) 0.03 Absolute Neutrophils 3.53 POC PT POC INR POC Sodium Sodium 140 POC Potassium Potassium 4.3 POC Chloride Chloride 104 Carbon Dioxide 23 POC Total CO2 Anion Gap 13.0 POC BUN BUN 30 H Creatinine 1.3 H POC Creatinine GFR Calculation 49 Glucose 78 POC Glucose Calcium 9.0 POC WB Ioniz Calcium Total Bilirubin 0.7 AST 29 ALT 17 Alkaline Phosphatase 130 H Ammonia 18 NT-Pro-B Natriuret Pep Total Protein 6.9 Albumin 3.7 Globulin 3.2 Albumin/Globulin Ratio 1.2 Procalcitonin Urine Color Urine Appearance Urine pH Ur Specific Carpenter Urine Protein Urine Glucose (UA) Urine Ketones Urine Occult Blood Urine Nitrate Urine Bilirubin Urine Urobilinogen Ur Leukocyte Esterase Urine RBC Urine WBC Ur Squamous Epith Cells Urine Bacteria Hyaline Casts Urine Mucus Ur Culture Indicated? Ethyl Alcohol Preliminary micro results at discharge 06/08/21 18:26 Urine Culture - Preliminary Urine - Catheterized A/P Narrative A/P Narrative: Assessment: 86 year old male with a history of CAD s/ CABG in 2002, atrial fibrillation on Eliquis COPD, recent UTI treated with Ciprofloxacin presented to the ED with confusion for several days and found to be hypoxic. Admitted for further workup of possible pneumonia vs congestive heart failure or a combination of both. Initial exam with point of care ultrasound revealed bilateral pleural effusions, likely normal LV EF, at least moderate TR and possibly RV dysfunction. #Acute hypoxic respiratory failure #Encephalopathy, possible delirium #Probable congestive heart failure #Bilateral pleural effusions #Suspected Tricuspid regurgitation and pulmonary hypertension #Possible community acquired pneumonia #Elevated creatinine, likely CKD #Hematuria, possible UTI #Atrial fibrillation (previously on Eliquis) Plan -Ceftriaxone and Doxycycline. -Consider trial of a loop diuretic. -CT chest without contrast. -Check pro-BNP and procalcitonin. -Hold home Eliquis for hematuria. -Bladders can Q shift. -Consider diuretic. -Duoneb Q6 hr and Albuterol prn. -Delirium bundle, avoid psychotropic meds. -PT consult -Family deferred an ECHO. -Obtain outside records, previous ECHO. -Consider urology consult if hematuria recurs off Eliquis, patient currently awaiting outpatient urology appointment. -Code status: DNR -Disposition: TBD Time Spent With Patient Time: Total time spent is greater than 50% in coordination of care (as documented) at patient's floor/unit and/or counseling patient:
--- NOTE | 2021-06-09 15:06 | Cat Scan Report ---
History: Pneumonia, congestive heart failure, short of breath, altered mental status, COPD TECHNIQUE: The chest was imaged without contrast in axial plane at 2.5 mm intervals. Sagittal, coronal and axial MIPS images were obtained. The radiation exposure was limited using dose reduction technology. FINDINGS: Large bilateral layering pleural effusions are present. There is compressive atelectasis in the adjacent posterior segments of both lower lobes. Multiple air bronchograms are present in the lower lobes. Patient has underlying moderate COPD with pulmonary fibrosis and multiple blebs. The masslike infiltrate seen in the right lung on the prior CT done on 02/15/21 has partially resolved. This is an inflammatory process and there is no evidence of underlying neoplasm. There is a small peripheral infiltrate anteriorly in the lingula which is probably due to pneumonia. The heart is mildly enlarged. There is a dual-chamber pacemaker. Severe atherosclerotic disease is present in the coronary arteries and there has been prior coronary bypass. Aorta also has densely calcified plaques. 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 Severe atherosclerotic disease is also present in the upper abdomen. 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 IMPRESSION: Large bilateral pleural effusions causing compressive atelectasis posteriorly in both lower lobes. Moderate COPD with superimposed inflammation in both lungs. Cardiomegaly with severe atherosclerotic coronary artery disease Interpreted and Authenticated by: Charan Levin 06/09/21
[2021-06-09] MEDS ORDERED: ONDANSETRON 4 MG/2 ML VIAL IV PRN (15:11)
[2021-06-09] MEDS ORDERED: ACETAMINOPHEN 325 MG TABLET PO PRN (15:11)
[2021-06-09] MEDS ORDERED: ALBUTEROL SULFATE 2.5 MG/3 ML NEBULIZER NEB PRN (15:11)
[2021-06-09] MEDS: DOXYCYCLINE 100 MG in DEXTROSE 5% IN WATER 100 ML IV SCH (16:23)
[2021-06-09] MEDS: 0.9 % SODIUM CHLORIDE 10 ML SYRINGE IV SCH ×2 (16:23→20:16)
[2021-06-09] MEDS: SENNOSIDES 1 TABLET PO SCH (20:15)
[2021-06-09] MEDS ORDERED: ROSUVASTATIN 10 MG TABLET PO SCH (21:00)
[2021-06-10] MEDS: DOXYCYCLINE 100 MG in DEXTROSE 5% IN WATER 100 ML IV SCH ×2 (01:38→08:46)
[2021-06-10] MEDS: 0.9 % SODIUM CHLORIDE 10 ML SYRINGE IV SCH ×3 (04:16→21:22)
[2021-06-10] MEDS ORDERED: cefTRIAXone 1 GM VIAL IV SCH (08:00)
[2021-06-10 08:07] LABS: ALT/SGPT 16 U/L (<40); AST/SGOT 25 U/L (<40); Albumin 3.2 gm/dL (3.2-5.2); Alkaline Phosphatase 118 U/L (39-117); Bilirubin,Direct 0.3 mg/dL (<0.3); Bilirubin,Total 0.6 mg/dL (0.1-1.0); Blood Urea Nitrogen 37 mg/dL (8-23); Calcium 8.5 mg/dL (8.6-10.4); Carbon Dioxide 24 mmol/L (22-30); Chloride 102 mmol/L (96-108); Globulin 3.2 gm/dL (2.2-3.7); Glomerular Filtration Rate 41; Glucose 78 mg/dL (70-105); Lactate Dehydrogenase 291 U/L (135-225); Phosphorous 3.8 mg/dL (2.5-4.5); Triglycerides 32 mg/dL (<150); Uric Acid 10.1 mg/dL (2.5-8.0)
[2021-06-10 08:23] LABS: Hematocrit 32.9 % (40.1-51.0); Hemoglobin 9.2 g/dL (13.7-17.5); Mean Cell Volume 101.9 fL (80.0-100.0); Mean Platelet Volume 10.1 fL (7.4-10.4); Platelet Count 130 K/mcL (140-440); RBC 3.23 M/mcL (4.63-6.08); WBC 5.7 K/mcL (4.5-11.0)
[2021-06-10] MEDS: SENNOSIDES 1 TABLET PO SCH ×2 (08:50→21:22)
[2021-06-10 08:53] LABS: Anisocytosis 2+ (None Seen); Band Neutrophils % 5 % (0-10); Eosinophils % (Manual) 1 % (0-7); Hypochromasia 2+ (None Seen); Lymphocytes % 12 % (15-49); Macrocytosis 1+ (None Seen); Monocytes % (Manual) 8 % (1-12); Platelet Estimate DECREASED (Normal); RBC Morphology ABNORMAL (Normal); Segmented Neutrophils % 74 % (38-78); Target Cells OCC (None Seen)
[2021-06-10] MEDS ORDERED: FUROSEMIDE 40 MG/4 ML VIAL IV ONE (10:27)
--- NOTE | 2021-06-10 12:38 | Internal Med Progress Note ---
SUBJECTIVE Subjective Patient information: Note initiated : 06/10/21 at 12:36 pm Service Date, if different from initiated Date: [] Patient: Wilton Lobato 86 y/o M admitted on 06/09/21 for alt. mental status/UTI. Chief Complaint: [] Interval history: Mr. Lobato is a 86 year old male with a history of CAD s/ CABG in 2002, atrial fibrillation on Eliquis COPD, recent UTI treated with Ciprofloxacin presented to the ED with confusion for several days. The patient has been declining at home for several weeks now according to family. Recently the patient has also had hematuria. In the ED the patient required about 3 L/min nasal canula oxygen. He was mildly hypothermic on arrival to the ED, no leukocytosis on CBC, chemistry panel was notable for a creatinine of 1.4. Creatinine was 1.6 in January of 2021. Chest xray showed widespread bilateral al veolar opacities, radiology felt this was probably secondary to pulmonary edema or heart failure. The patient was started on antibiotics for presumed pneumonia in the ED and hospital medicine was asked to admit the patient. 06/10: Pro-BNP elevated, procalcitonin only .13, CT chest showed bilateral pleural effusions and atelectasis. Lasix 40 mg IV once given, will monitor for improvement. The patient's presentation is likely due to heart failure, unlikely to be pneumonia with this additional information. Physical exam General: Chronically ill-appearing 86-year-old male Head: Atraumatic, normal inspection. Eyes: normal appearance, no scleral icterus. Neck: full ROM Respiratory: bilateral crackles. Cardiovascular: sternotomy scar, normal rate and rhythm, S1, S2. GI/Abdominal: soft, nontender, no guarding. Extremities: full range of motion, nontender. Neurological: CN II-XII intact, intact motor, intact sensation. Psychiatric: impaired cognition Skin: laceration on left chin from shaving, multiple bruises, fragile skin Constitutional Vitals: Vital Signs Temp Pulse Resp BP Pulse Ox 97 F 71 16 119/70 93 06/10/21 07:32 06/10/21 07:32 06/10/21 07:32 06/10/21 07:32 06/10/21 07:32 Period Temp Pulse Resp BP Sys/[place] Pulse Ox Last 24 Hr 97 F-98.1 F 62-71 16-20 99-119/55-70 91-99 Intake and Output 06/09/21 06/10/21 06/10/21 21:59 05:59 13:59 Intake Total 850 100 340 Output Total 201 1 Balance 649 100 339 Weight 84.368 kg Intake & Output: Intake & Output 06/09/21 06/10/21 06/10/21 21:59 05:59 13:59 Intake Total 850 100 340 Output Total 201 1 Balance 649 100 339 Weight 84.368 kg Intake: IV 100 100 100 Vibramycin 100 mg In Dextrose 5 100 100 100 % in Water 100 ml @ 100 mls/hr IV Q12H DORIS Rx#:[id number] Oral 750 240 Output: Void Amount 200 # of times incontinent of urine 1 1 Other: Meal Breakfast Percent of Meal Consumed 100% Feeding Ability Independent Urine Appearance Hematuria # Voids 1 1 OBJ DATA Labs CBC & Chem 7: 06/10/21 05:43 06/10/21 05:43 Labs: Abnormal Lab Results 06/10/21 06/10/21 06/09/21 05:43 05:43 08:39 RBC 3.23 L Hgb 9.2 L Hct 32.9 L POC Hct MCV 101.9 H MCHC 28.0 L RDW 17.0 H Plt Count 130 L MPV Lymph % (Auto) [place] % (Auto) Lymph # (Auto) Lymphocytes % 12 L Platelet Estimate Decreased A RBC Morphology Abnormal A Hypochromasia 2+ A Anisocytosis 2+ A Macrocytosis 1+ A Target Cells Occ A POC PT POC INR POC BUN BUN 37 H Creatinine 1.5 H POC Creatinine Uric Acid 10.1 H Calcium 8.5 L Direct Bilirubin 0.3 H GGT 66 H Alkaline Phosphatase 118 H Lactate Dehydrogenase 291 H NT-Pro-B Natriuret Pep Procalcitonin 0.13 H Urine Appearance Urine Protein Urine Occult Blood Ur Leukocyte Esterase Urine RBC Urine WBC Hyaline Casts Urine Mucus 06/09/21 06/09/21 06/08/21 08:39 08:39 18:26 RBC Hgb Hct POC Hct 31 L MCV MCHC RDW Plt Count MPV Lymph % (Auto) [place] % (Auto) Lymph # (Auto) Lymphocytes % Platelet Estimate RBC Morphology Hypochromasia Anisocytosis Macrocytosis Target Cells POC PT POC INR POC BUN 32 H BUN Creatinine POC Creatinine 1.4 H Uric Acid Calcium Direct Bilirubin GGT Alkaline Phosphatase Lactate Dehydrogenase NT-Pro-B Natriuret Pep 5396.0 H Procalcitonin Urine Appearance Hazy A Urine Protein 100 A Urine Occult Blood >=1.0 A Ur Leukocyte Esterase 25 A Urine RBC 8 H Urine WBC 12 H Hyaline Casts 3 H Urine Mucus Few A 06/08/21 06/08/21 06/08/21 17:06 16:44 16:44 RBC 3.39 L Hgb 9.6 L Hct 33.9 L POC Hct MCV MCHC 28.3 L RDW 17.2 H Plt Count MPV 10.5 H Lymph % (Auto) 9.1 L [place] % (Auto) 15.4 H Lymph # (Auto) 0.44 L Lymphocytes % Platelet Estimate RBC Morphology Hypochromasia Anisocytosis Macrocytosis Target Cells POC PT 16.8 H POC INR 1.4 H POC BUN BUN 30 H Creatinine 1.3 H POC Creatinine Uric Acid Calcium Direct Bilirubin GGT Alkaline Phosphatase 130 H Lactate Dehydrogenase NT-Pro-B Natriuret Pep Procalcitonin Urine Appearance Urine Protein Urine Occult Blood Ur Leukocyte Esterase Urine RBC Urine WBC Hyaline Casts Urine Mucus Meds: Medications Acetaminophen (Acetaminophen 325 Mg Tablet) 650 mg PO Q6HP PRN; Protocol PRN Reason: Per Pain Protocol/Fever > 101 Last Admin: 06/10/21 11:06 Dose: 650 mg Documented by: Hydrocodone Bitart/Acetaminophen (Hydrocodone/Apap 5/325mg Tablet) 1 tab PO Q4HP PRN; Protocol PRN Reason: Per Pain Protocol Albuterol Sulfate (Albuterol Sulfate 2.5 Mg/3 Ml Nebulizer) 2.5 mg NEB Q4HRT PRN PRN Reason: wheezing Ceftriaxone Sodium (Ceftriaxone 1 Gm Vial) 1 gm IV Q24H [facility]ORIS; Protocol Stop: 06/14/21 07:59 Last Admin: 06/10/21 08:46 Dose: 1 gm Documented by: Hydromorphone HCl (Hydromorphone 0.5 Mg/0.5 Ml Syringe) 0.2 mg IV Q2HP PRN; Protocol PRN Reason: Per Pain Protocol Doxycycline Hyclate 100 mg/ (Dextrose) 100 mls @ 100 mls/hr IV Q12H DORIS; Protocol Stop: 06/13/21 15:59 Last Infusion: 06/10/21 09:50 Dose: Infused Documented by: Ondansetron HCl (Ondansetron 4 Mg/2 Ml Vial) 4 mg IV Q6HP PRN PRN Reason: Nausea And Vomiting Senna (Sennosides 1 Tablet) 2 tab PO BID [facility] Last Admin: 06/10/21 08:50 Dose: Not Given Documented by: Sodium Chloride (0.9 % Sodium Chloride 10 Ml Syringe) 10 ml IV Q8 [facility] Last Admin: 06/10/21 04:16 Dose: 10 ml Documented by: A/P Narrative A/P Narrative: Assessment: 86 year old male with a history of CAD s/ CABG in 2002, atrial fibrillation on Eliquis COPD, recent UTI treated with Ciprofloxacin presented to the ED with confusion for several days and found to be hypoxic. Admitted for further workup of possible pneumonia vs congestive heart failure or a combination of both. Initial exam with point of care ultrasound revealed bilateral pleural effusions, likely normal LV EF, at least moderate TR and possibly RV dysfunction. Subsequent workup included a CT chest that showed bilatreal pleural effusions and compressive atelectasis. #Acute hypoxic respiratory failure #Acute on chronic congestive heart failure #Bilateral pleural effusions #Suspected TR and pulmonary hypertension #Elevated creatinine, likely CKD #Hematuria #Atrial fibrillation (previously on Eliquis) #Poor prognosis Plan -Discontinue Ceftriaxone and Doxycycline. -Lasix 40 mg IV once, monitor respiratory status and blood pressure. -Hold home Eliquis for hematuria. -Bladders scan Q shift. -Albuterol prn. -Delirium bundle, avoid psychotropic meds. -PT consult -Family deferred an ECHO. -Goals of care discussion. -Barclay catheter -Consider urology consult if hematuria recurs off Eliquis, patient currently awaiting outpatient urology appointment. -Code status: DNR -Disposition: Probably hospice. Time Spent With Patient Time: Total time spent is greater than 50% in coordination of care (as documente d) at patient's floor/unit and/or counseling patient: QUALITY VTE Deep Vein Thrombosis/Pulmonary Embolism Present on Admission: No
[2021-06-10] MEDS: HYDROcodone/APAP 5/325MG TABLET PO PRN ×3 (12:53→23:46)
[2021-06-11] MEDS: 0.9 % SODIUM CHLORIDE 10 ML SYRINGE IV SCH ×3 (06:11→22:07)
[2021-06-11 06:59] LABS: Albumin 3.3 gm/dL (3.2-5.2); Blood Urea Nitrogen 35 mg/dL (8-23); Calcium 8.3 mg/dL (8.6-10.4); Carbon Dioxide 28 mmol/L (22-30); Chloride 100 mmol/L (96-108); Glomerular Filtration Rate 44; Glucose 79 mg/dL (70-105); Phosphorous 3.4 mg/dL (2.5-4.5)
[2021-06-11] MEDS: SENNOSIDES 1 TABLET PO SCH ×2 (09:03→22:06)
[2021-06-11] MEDS ORDERED: FLU VACC QS2021-22(6MOS UP)/PF 60 MCG/0.5 ML SYRINGE IM ONE (10:00)
[2021-06-11] MEDS ORDERED: LEVOFLOXACIN 750 MG TABLET PO SCH (14:00)
--- NOTE | 2021-06-11 14:10 | Internal Med Progress Note ---
SUBJECTIVE Subjective Patient information: Note initiated : 06/11/21 at 2:06 pm Service Date, if different from initiated Date: [] Patient: Wilton Lobato 86 y/o M admitted on 06/09/21 for alt. mental status/UTI. Chief Complaint: [] Interval history: Mr. Lobato is a 86 year old male with a history of CAD s/ CABG in 2002, atrial fibrillation on Eliquis COPD, recent UTI treated with Ciprofloxacin presented to the ED with confusion for several days. The patient has been declining at home for several weeks now according to family. Recently the patient has also had hematuria. In the ED the patient required about 3 L/min nasal canula oxygen. He was mildly hypothermic on arrival to the ED, no leukocytosis on CBC, chemistry panel was notable for a creatinine of 1.4. Creatinine was 1.6 in January of 2021. Chest xray showed widespread bilateral alannah eolar opacities, radiology felt this was probably secondary to pulmonary edema or heart failure. The patient was started on antibiotics for presumed pneumonia in the ED and hospital medicine was asked to admit the patient. 06/10: Pro-BNP elevated, procalcitonin only .13, CT chest showed bilateral p leural effusions and atelectasis, probable lingula pneumonia. On Ceftriaxone and Azithromycin. Lasix 40 mg IV once given, will monitor for improvement. 06/11: Discussed goals of care with the patient. The patient will discuss it with his family. Lost IV access, the patient will decide if he wants to continue with diuretics, currently has a guzman catheter. Transitioned to oral levofloxacin for pneumonia. Physical exam General: Chronically ill-appearing 86-year-old male Head: Atraumatic, normal inspection. Eyes: normal appearance, no scleral icterus. Neck: full ROM Respiratory: bilateral crackles. Cardiovascular: sternotomy scar, normal rate and rhythm, S1, S2. GI/Abdominal: soft, nontender, no guarding. Extremities: full range of motion, nontender. Neurological: CN II-XII intact, intact motor, intact sensation. Psychiatric: impaired cognition Skin: laceration on left chin from shaving, multiple bruises, fragile skin Constitutional Vitals: Vital Signs Temp Pulse Resp BP Pulse Ox 97.3 F 65 22 108/61 98 06/11/21 12:00 06/11/21 12:00 06/11/21 12:00 06/11/21 12:00 06/11/21 12:00 Period Temp Pulse Resp BP Sys/[place] Pulse Ox Last 24 Hr 97.0 F-97.8 F 62-67 16-24 107-127/61-76 91-98 Intake and Output 06/11/21 06/11/21 06/11/21 05:59 13:59 21:59 Intake Total 490 Output Total 225 Balance 265 Intake & Output: Intake & Output 06/11/21 06/11/21 06/11/21 05:59 13:59 21:59 Intake Total 490 Output Total 225 Balance 265 Intake: Oral 490 Output: Urine Catheter Amount 225 Other: Urine Appearance Hematuria Small Blood Clots Urine Color Red Brown Urine Odor Normal OBJ DATA Labs CBC & Chem 7: 06/10/21 05:43 06/11/21 05:53 Labs: Abnormal Lab Results 06/11/21 06/10/21 06/10/21 05:53 05:43 05:43 RBC 3.23 L Hgb 9.2 L Hct 32.9 L POC Hct MCV 101.9 H MCHC 28.0 L RDW 17.0 H Plt Count 130 L MPV Lymph % (Auto) [place] % (Auto) Lymph # (Auto) Lymphocytes % 12 L Platelet Estimate Decreased A RBC Morphology Abnormal A Hypochromasia 2+ A Anisocytosis 2+ A Macrocytosis 1+ A Target Cells Occ A POC PT POC INR POC BUN BUN 35 H 37 H Creatinine 1.4 H 1.5 H POC Creatinine Uric Acid 10.1 H Calcium 8.3 L 8.5 L Direct Bilirubin 0.3 H GGT 66 H Alkaline Phosphatase 118 H Lactate Dehydrogenase 291 H NT-Pro-B Natriuret Pep Procalcitonin Urine Appearance Urine Protein Urine Occult Blood Ur Leukocyte Esterase Urine RBC Urine WBC Hyaline Casts Urine Mucus 06/09/21 06/09/21 06/09/21 08:39 08:39 08:39 RBC Hgb Hct POC Hct 31 L MCV MCHC RDW Plt Count MPV Lymph % (Auto) [place] % (Auto) Lymph # (Auto) Lymphocytes % Platelet Estimate RBC Morphology Hypochromasia Anisocytosis Macrocytosis Target Cells POC PT POC INR POC BUN 32 H BUN Creatinine POC Creatinine 1.4 H Uric Acid Calcium Direct Bilirubin GGT Alkaline Phosphatase Lactate Dehydrogenase NT-Pro-B Natriuret Pep 5396.0 H Procalcitonin 0.13 H Urine Appearance Urine Protein Urine Occult Blood Ur Leukocyte Esterase Urine RBC Urine WBC Hyaline Casts Urine Mucus 06/08/21 06/08/21 06/08/21 18:26 17:06 16:44 RBC Hgb Hct POC Hct MCV MCHC RDW Plt Count MPV Lymph % (Auto) [place] % (Auto) Lymph # (Auto) Lymphocytes % Platelet Estimate RBC Morphology Hypochromasia Anisocytosis Macrocytosis Target Cells POC PT 16.8 H POC INR 1.4 H POC BUN BUN 30 H Creatinine 1.3 H POC Creatinine Uric Acid Calcium Direct Bilirubin GGT Alkaline Phosphatase 130 H Lactate Dehydrogenase NT-Pro-B Natriuret Pep Procalcitonin Urine Appearance Hazy A Urine Protein 100 A Urine Occult Blood >=1.0 A Ur Leukocyte Esterase 25 A Urine RBC 8 H Urine WBC 12 H Hyaline Casts 3 H Urine Mucus Few A 06/08/21 16:44 RBC 3.39 L Hgb 9.6 L Hct 33.9 L POC Hct MCV MCHC 28.3 L RDW 17.2 H Plt Count MPV 10.5 H Lymph % (Auto) 9.1 L [place] % (Auto) 15.4 H Lymph # (Auto) 0.44 L Lymphocytes % Platelet Estimate RBC Morphology Hypochromasia Anisocytosis Macrocytosis Target Cells POC PT POC INR POC BUN BUN Creatinine POC Creatinine Uric Acid Calcium Direct Bilirubin GGT Alkaline Phosphatase Lactate Dehydrogenase NT-Pro-B Natriuret Pep Procalcitonin Urine Appearance Urine Protein Urine Occult Blood Ur Leukocyte Esterase Urine RBC Urine WBC Hyaline Casts Urine Mucus Meds: Medications Acetaminophen (Acetaminophen 325 Mg Tablet) 650 mg PO Q6HP PRN; Protocol PRN Reason: Per Pain Protocol/Fever > 101 Last Admin: 06/10/21 11:06 Dose: 650 mg Documented by: Hydrocodone Bitart/Acetaminophen (Hydrocodone/Apap 5/325mg Tablet) 1 tab PO Q4HP PRN; Protocol PRN Reason: Per Pain Protocol Last Admin: 06/10/21 23:46 Dose: 1 tab Documented by: Albuterol Sulfate (Albuterol Sulfate 2.5 Mg/3 Ml Nebulizer) 2.5 mg NEB Q4HRT PRN PRN Reason: wheezing Furosemide (Furosemide 40 Mg/4 Ml Vial) 60 mg IV BIDD [facility]ORIS Stop: 06/11/21 16:01 Hydromorphone HCl (Hydromorphone 0.5 Mg/0.5 Ml Syringe) 0.2 mg IV Q2HP PRN; Protocol PRN Reason: Per Pain Protocol Levofloxacin (Levofloxacin 750 Mg Tablet) 750 mg PO Q48H [facility]; Protocol Stop: 06/17/21 13:59 Ondansetron HCl (Ondansetron 4 Mg/2 Ml Vial) 4 mg IV Q6HP PRN PRN Reason: Nausea And Vomiting Senna (Sennosides 1 Tablet) 2 tab PO BID [facility] Last Admin: 06/11/21 09:03 Dose: Not Given Documented by: Sodium Chloride (0.9 % Sodium Chloride 10 Ml Syringe) 10 ml IV Q8 [facility] Last Admin: 06/11/21 06:11 Dose: Not Given Documented by: A/P Narrative A/P Narrative: Assessment: 86 year old male with a history of CAD s/ CABG in 2002, atrial fibrillation on Eliquis COPD, recent UTI treated with Ciprofloxacin presented to the ED with confusion for several days and found to be hypoxic. Admitted for further workup of possible pneumonia vs congestive heart failure or a combination of both. Initial exam with point of care ultrasound revealed bilateral pleural effusions, likely normal LV EF, at least moderate TR and possibly RV dysfunction. Subsequent workup included a CT chest that showed bilatreal pleural effusions and compressive atelectasis, probable lingular pn eumonia. #Acute hypoxic respiratory failure #Acute on chronic congestive heart failure #Bilateral pleural effusions #Probable lingular pneumonia #Suspected TR and pulmonary hypertension #Elevated creatinine, likely CKD #Hematuria #Atrial fibrillation (previously on Eliquis) #Guzman catheter #Poor prognosis Plan -Levofloxacin Q48 hrs, treat 5-7 days. -Oral diuretic if in line with goals of care -Hold home Eliquis for hematuria. -Albuterol prn. -Delirium bundle, avoid psychotropic meds. -PT consult -Family deferred an ECHO. -Goals of care discussion. -Guzman catheter -Code status: DNR -Disposition: Probably hospice. Time Spent With Patient Time: Total time spent is greater than 50% in coordination of care (as documented) at patient's floor/unit and/or counseling patient: QUALITY VTE Deep Vein Thrombosis/Pulmonary Embolism Present on Admission: No
[2021-06-11] MEDS: HYDROcodone/APAP 5/325MG TABLET PO PRN ×2 (15:29→22:07)
[2021-06-11] MEDS ORDERED: FUROSEMIDE 40 MG/4 ML VIAL IV SCH ×2 (16:00)
[2021-06-11] MEDS: HYDROmorphone 0.5 MG/0.5 ML SYRINGE IV PRN (19:10)
[2021-06-12] MEDS: HYDROmorphone 0.5 MG/0.5 ML SYRINGE IV PRN ×2 (04:18→10:57)
[2021-06-12] MEDS: 0.9 % SODIUM CHLORIDE 10 ML SYRINGE IV SCH (06:31)
[2021-06-12 07:39] LABS: Albumin 3.2 gm/dL (3.2-5.2); Blood Urea Nitrogen 29 mg/dL (8-23); Calcium 8.3 mg/dL (8.6-10.4); Carbon Dioxide 29 mmol/L (22-30); Chloride 98 mmol/L (96-108); Glomerular Filtration Rate 54; Glucose 84 mg/dL (70-105); Phosphorous 2.9 mg/dL (2.5-4.5)
[2021-06-12] MEDS ORDERED: DIAZEPAM 2 MG TABLET PO PRN (08:46)
--- NOTE | 2021-06-12 08:55 | Discharge Summary ---
Discharge Provider Provider Patient information: Note initiated : 06/12/21 at 8:52 am Service Date, if different from initiated Date: [] Patient: Wilton Lobato 86 y/o M admitted on 06/09/21 for alt. mental status/UTI. Chief Complaint: [] Date of admission: 06/09/21 14:40 Discharge date: 06/12/21 Primary care physician: Tom Lyle DO Consults: 06/08/21 Consult to Physician [CONS] Stat Comment: Consulting Provider: Grady Mcginnis Reason For Exam: Physician to Consult COURSE Hospital Course Hospital course: Mr. Lobato is a 86 year old male with a history of CAD s/ CABG in 2002, atrial fibrillation on Eliquis COPD, recent UTI treated with Ciprofloxacin presented to the ED with confusion for several days. The patient has been declining at home for several weeks now according to family. Recently the patient has also had hematuria. In the ED the patient required about 3 L/min nasal canula oxygen. He was mildly hypothermic on arrival to the ED, no leukocytosis on CBC, chemistry panel was notable for a creatinine of 1.4. Creatinine was 1.6 in January of 2021. Chest xray showed widespread bilateral alveolar opacities, radiology felt this was probably secondary to pulmonary edema or heart failure. The patient was started on antibiotics for presumed pneumonia in the ED and hospital medicine was asked to admit the patient. 06/10: Pro-BNP elevated, procalcitonin only .13, CT chest showed bilateral pleural effusions and atelectasis, probable lingula pneumonia. On Ceftriaxone and Azithromycin. Lasix 40 mg IV once given, will monitor for improvement. 06/11: Discussed goals of care with the patient. The patient will discuss it with his family. Lost IV access, the patient will decide if he wants to continue with diuretics, currently has a guzman catheter. Transitioned to oral levofloxacin for pneumonia. 06/12: Discussed goals of care with the patient, he has capacity to make medical decisions. He does not want any diuretic or antibiotics, only to be comfortable. Discharged to [facility], hospice will see the patient there for end of life comfort care. Physical exam General: Chronically ill-appearing 86-year-old male Head: Atraumatic, normal inspection. Eyes: normal appearance, no scleral icterus. Neck: full ROM Respiratory: rapid shallow breaths, appears to be in respiratory distress. Cardiovascular: sternotomy scar, normal rate and rhythm, S1, S2. GI/Abdominal: soft, nontender, no guarding. Extremities: full range of motion, nontender. Neurological: CN II-XII intact, intact motor, intact sensation. Psychiatric: intact cognition, appears anxious Skin: laceration on left chin from shaving, multiple bruises, fragile skin Discharge diagnosis: Congestive heart failure Secondary discharge diagnosis: Possible lingular pneumonia COPD Time Spent with Patient Time attestation: Total time spent providing and/or coordinating discharge services: EXAM Constitutional Vitals: Temp Pulse Resp BP Pulse Ox 97.1 F 68 20 114/70 97 06/12/21 07:57 06/12/21 07:57 06/12/21 07:57 06/12/21 07:57 06/12/21 07:57 Discharge Data Data Completed and Pending Labs on day of discharge: Labs from last 24 hours 06/12/21 05:30 Sodium 136 Potassium 4.0 Chloride 98 Carbon Dioxide 29 Anion Gap 9.0 BUN 29 H Creatinine 1.2 GFR Calculation 54 Glucose 84 Calcium 8.3 L Phosphorus 2.9 Albumin 3.2 Preliminary micro results at discharge 06/08/21 17:17 Blood Culture - Preliminary Blood 06/08/21 17:11 Blood Culture - Preliminary Blood Discharge Plan Patient/Caregiver Discharge Instructions Activity: increase activity as tolerated Diet: Regular Diet Prescriptions: Discontinued Eliquis 2.5 mg tablet 2.5 mg PO BID RF: 0 albuterol sulfate [ProAir HFA] 90 mcg/actuation HFA aerosol inhaler 1 - 2 puff INHALATION Q4HP PRN (Reason: Shortness Of Breath) RF: 0 Follow Up Plan Follow up with: Tom Lyle DO [Primary Care Provider] - Patient Disposition: Hospice - Medical Facility Prognosis: Fair Rehab Potential: Serious I certify that the patient requires SNF services: Yes Overall status at discharge: patient is not back to baseline Discharge Orders: Discharge Order (Routine); Ordered 06/12/21 Ordered By: Grady AGUILERA VTE Deep Vein Thrombosis/Pulmonary Embolism Present on Admission: No
[2021-06-12] MEDS: SENNOSIDES 1 TABLET PO SCH (09:12)
[2021-06-12] MEDS: HYDROcodone/APAP 5/325MG TABLET PO PRN (09:13)
[2021-06-13] MEDS ORDERED: LEVOFLOXACIN 750 MG TABLET PO SCH (09:00)
== END 2021-06-12 12:40 | disposition hospice, inpatient (51) | DRG 291 ==
LOC: ED 14:50 → MEDSUR 06-09 14:40
PROVIDERS: ADMIT Internal Medicine; ATTEND Internal Medicine